=== PATIENT | male | born 1975 | race American Indian/Alaskan Native ===

== ENCOUNTER 2020-11-05 17:02 | Emergency (ER) | payer SELFPAY ==
[2020-11-05 17:44] VITALS: BP 148/89
--- NOTE | 2020-11-05 20:29 | Emergency Department Report ---
ED Dizziness HPI - General Chief Complaint: Dizziness Stated Complaint: VERTIGO Time Seen by Provider: 11/05/20 20:19 Source: patient Mode of arrival: Ambulatory Limitations: No Limitations - History of Present Illness Initial Comments: This is a 45-year-old male complaining of left ear pain 1 day ago followed by 2 episodes of feeling dizzy. During the time that he became dizzy it was associated with nausea. He denies any vomiting. Patient have no URI symptoms no vomiting no headache no chest pain no shortness of breath. Patient denies any recent traumas or any other illnesses. No current complaint of dizziness. His past medical history is of high blood pressure and he is currently taking no medicine his blood pressure in the emergency room today is 148/89. Patient is well-appearing in no acute distress MD Complaint: dizziness -: days(s) (1) Timing: gradual onset Description: sense of movement History of Same: No History of Trauma: No Severity: mild Improves With: rest Worsens With: nothing Associated Symptoms: denies other symptoms. denies: ataxia, chest pain, confusion, diaphoresis, loss of appetite, seizure, shortness of breath, weakness - Related Data Previous Rx's Medication Instructions Recorded Last Taken Type Meclizine [Antivert] 25 mg PO TID PRN #20 tablet 11/05/20 Unknown Rx Allergies Allergy/AdvReac Type Severity Reaction Status Date / Time No Known Allergies Allergy Unverified 11/05/20 17:41 ED Review of Systems ROS: Stated complaint: VERTIGO Other details as noted in HPI Comment: All other systems reviewed and negative Constitutional: denies: chills, diaphoresis, fever, weakness Eyes: as per HPI. denies: eye pain, eye discharge, vision change ENT: ear pain (Left ear pain). denies: throat pain, hearing loss, congestion Respiratory: no symptoms reported Cardiovascular: denies: chest pain, palpitations, dyspnea on exertion, edema, syncope, paroxysmal nocturnal dyspnea Endocrine: no symptoms reported Gastrointestinal: nausea. denies: abdominal pain, vomiting, diarrhea, constipation, hematemesis, hematochezia Genitourinary: as per HPI Musculoskeletal: denies: joint swelling, arthralgia Neurological: headache. denies: weakness, numbness, paresthesias, confusion, abnormal gait Psychiatric: as per HPI Hematological/Lymphatic: as per HPI ED Past Medical Hx - Past Medical History Previous Medical History?: No - Surgical History Past Surgical History?: No - Social History Smoking Status: Current Every Day Smoker - Medications Home Medications: Home Medications Medication Instructions Recorded Confirmed Last Taken Type Meclizine [Antivert] 25 mg PO TID PRN #20 tablet 11/05/20 Unknown Rx ED Physical Exam - General Limitations: No Limitations General appearance: alert, in no apparent distress - Head Head exam: Present: atraumatic, normal inspection - Eye Eye exam: Present: normal appearance, PERRL, EOMI. Absent: conjunctival injection, periorbital swelling Pupils: Present: normal accommodation - ENT ENT exam: Present: normal exam, normal orophraynx, mucous membranes moist, TM's normal bilaterally - Neck Neck exam: Present: normal inspection, full ROM - Respiratory Respiratory exam: Present: normal lung sounds bilaterally. Absent: respiratory distress, wheezes, rhonchi - Cardiovascular Cardiovascular Exam: Present: regular rate, normal heart sounds ED Course Vital Signs 11/05/20 17:42 Temperature 98.8 F Pulse Rate 71 Respiratory 16 Rate Blood Pressure 148/89 O2 Sat by Pulse 100 Oximetry - Reevaluation(s) Reevaluation #1: 11/05/20 20:32 Well-appearing man in no distress negative Romberg. Gait steady no complaints of dizziness at this time ED Medical Decision Making - Medical Decision Making 45-year-old male 1 day ago he complained of left ear pain associated with 2 episodes of dizziness. Doing the periods of dizziness he felt nauseated. No further symptoms no vomiting no diarrhea no URI symptoms no trauma is neurologically intact his gait is steady just a normal exam and no complaint of dizziness at this time no headaches. This is most likely vertigo could also be start of a viral illness . No further work-up warranted at this time patient with no complaint discussed with him the need for follow-up with his primary care doctor or Dr. Benoit or if symptoms persist Critical Care Time: No Critical care attestation.: If time is entered above; I have spent that time in minutes in the direct care of this critically ill patient, excluding procedure time. ED Disposition Clinical Impression: Vertigo Disposition: DC-01 TO HOME OR SELFCARE Is pt being admited?: No Does the pt Need Aspirin: No Condition: Stable Instructions: Dizziness Additional Instructions: Get plenty of rest. Decrease your soda intake. Drink at least 6 to 8 glasses of water daily. Follow-up with your primary care doctor in 3 to [address] Vazquez. If your symptoms worsen and is associated with a headache nausea vomiting persistent dizziness with no improvement with Antivert please return to the emergency room Prescriptions: Meclizine [Antivert] 25 mg PO TID PRN #20 tablet PRN Reason: Vertigo Referrals: PRIMARY CAREMD [Primary Care Provider] - 3-5 Days MARGARET VAZQUEZ MD [Staff Physician] - 3-5 Days Time of Disposition: 20:35
== END 2020-11-05 21:09 | disposition home or self-care (01) ==
LOC: ED 17:02
DX: R42 Dizziness and giddiness (principal); F17.200 Nicotine dependence, unspecified, uncomplicated; Z79.899 Other long term (current) drug therapy
CPT/HCPCS: 99282

== ENCOUNTER 2022-04-08 12:54 | Emergency (ER) | payer SELFPAY ==
[2022-04-08 13:07] VITALS: BP 144/84
[2022-04-08 14:06] LABS: Bilirubin,Urine NEG (Negative); Blood,Urine LG (Negative); Color,Urine Yellow (Yellow)
[2022-04-08 14:13] LABS: Mucus,Urine 3+ /HPF
[2022-04-08 14:21] LABS: Basophils # (Auto) 0.2 K/mm3 (0.0-0.1); Basophils % (Auto) 0.9 % (0.0-1.8); Eosinophils % (Auto) 0.2 % (0.0-4.3); Hematocrit 43.1 % (35.5-45.6); Hemoglobin 14.8 gm/dl (11.8-15.2); Lymphocytes # (Auto) 1.8 K/mm3 (1.2-5.4); Lymphocytes % (Auto) 10.9 % (13.4-35.0); Mean Corpuscular HGB Conc 34 % (32-34); Mean Corpuscular Volume 95 fl (84-94); Monocytes # (Auto) 1.4 K/mm3 (0.0-0.8); Monocytes % (Auto) 8.4 % (0.0-7.3); Platelet Count 221 K/mm3 (140-440); Red Blood Count 4.53 M/mm3 (3.65-5.03); Red Cell Distribution Width 12.5 % (13.2-15.2)
[2022-04-08 14:42] LABS: Alanine Aminotransferase 89 units/L (7-56); Albumin 4.5 g/dL (3.9-5); BUN/Creatinine Ratio 15; Blood Urea Nitrogen 16 mg/dL (9-20); Hemolysis Index 6
== END 2022-04-09 08:42 | disposition left against medical advice (07) ==
LOC: ED 12:54
DX: M54.50 Low back pain, unspecified (principal); Z53.21 Procedure and treatment not carried out due to patient leaving prior to being seen by health care provider
CPT/HCPCS: 36415; 80053; 81001; 85025